=== PATIENT | female | born 2000 | race Caucasian/White ===

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

== ENCOUNTER 2021-01-02 03:57 | Emergency (ER) | payer SELFPAY ==
[2021-01-02] MEDS ORDERED: Ondansetron 4 MG Tab.DIS PO ONE (04:33)
--- NOTE | 2021-01-02 04:50 | EDM.PDOC ---
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 Her nausea, vomiting, and diarrhea started 1 to 2 days ago. Her last bowel movement was semiformed at 11 PM last night. 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 It was enough to fill half of a panty liner but has subsequently stopped. She became concerned about that in addition to her nausea, vomiting, and diarrhea. Her boss sent her home from work because of that. She does have a history of a prior that resulted in a medically induced and D&C. The patient is unsure of what her blood type is and cannot recall if she required RhoGam after the D&C. That prior was 2 years ago. She did start taking her vitamins. 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 She did talk to her neurologist to encouraged her to restart that yesterday. She has taken 1 dose thus far. She does seem quite anxious. Again she reports that the vaginal bleeding has subsided but the cramping continues. She denies any fever or chills. She has had a diminished appetite. She last had intercourse 2 weeks ago. The patient was started on amoxicillin for acute sinusitis on 12/30/2020 as well. lower abd Pain Score (Numeric/FACES): 6 - Related Data Allergies Allergy/AdvReac Type Severity Reaction Status Date / Time No Known Allergies Allergy Verified 01/02/21 04:13 Home Meds: Home Meds Albuterol Sulfate [Proair Hfa] 8.5 gm IH ASDIRECTED PRN 05/22/13 [History] Amoxicillin 500 mg PO BID 01/02/21 [History] Folic Acid 1 mg PO DAILY 01/02/21 [History] levETIRAcetam [Keppra] 500 mg PO DAILY 01/02/21 [History] Past Medical History HEENT History: Reports: Impaired Vision, Other (See Below) Other HEENT History: glasses Cardiovascular History: Reports: Heart Murmur, Syncope Respiratory History: Reports: Asthma Genitourinary History: Reports: STD REEL SLITTER History: Reports: Polycystic Ovaries, Therapeutic , Other (See Below) Musculoskeletal History: Reports: Fracture, Other (See Below) Other Musculoskeletal History: tib/fib fx left side. right elbow fx and ulnar fx Neurological History: Reports: Concussion, Migraines, Seizure Psychiatric History: Reports: Depression Dermatologic History: Reports: Other (See Below) Other Dermatologic History: rash - Past Surgical History HEENT Surgical History: Reports: Oral Surgery GI Surgical History: Reports: EGD Social & Family History - Caffeine Use Caffeine Use: Reports: Soda, Tea - Recreational Drug Use Recreational Drug Use: No - Living Situation & Occupation Living situation: Reports: Single, with Significant Other (Lives with significant other, No working at this time but attending training monthly) ED ROS GENERAL - Review of Systems Review Of Systems: See Below Constitutional: Reports: Decreased Appetite HEENT: Reports: Rhinitis, Sinus Problem Respiratory: Reports: No Symptoms Cardiovascular: Reports: No Symptoms Endocrine: Reports: No Symptoms GI/Abdominal: Reports: Abdominal Pain (Generalized), Diarrhea, Decreased Appetite, Nausea, Vomiting : Reports: Other (Vaginal bleeding that started at work tonight and has subsided now.) Musculoskeletal: Reports: No Symptoms Skin: Reports: No Symptoms Neurological: Reports: No Symptoms Psychiatric: Reports: No Symptoms Hematologic/Lymphatic: Reports: No Symptoms Immunologic: Reports: No Symptoms ED EXAM - Physical Exam Exam: See Below Exam Limited By: No Limitations General Appearance: Alert, No Apparent Distress, Anxious Eye Exam: Bilateral Eye: EOMI, PERRL Nose: Nasal Swelling, Nasal Drainage, Other (Tenderness to percussion over the maxillary sinuses) Throat/Mouth: Normal Inspection, Normal Lips, Normal Oropharynx, Normal Voice, No Airway Compromise Head: Atraumatic, Normocephalic Neck: Normal Inspection Respiratory/Chest: No Respiratory Distress, Lungs Clear, Normal Breath Sounds Cardiovascular: Normal Peripheral Pulses, Regular Rate, Rhythm, No Murmur GI/Abdominal Exam: Soft, Tender (Generalized abdominal tenderness to palpation), Abnormal Bowel Sounds (Hyperactive bowel sounds). No: Guarding, Rigid, Rebound Extremities: Normal Inspection Neurological: Alert, Oriented, Normal Cognition, No Motor/Sensory Deficits Psychiatric: Normal Affect Skin Exam: Warm, Dry Lymphatic: No Adenopathy Course - Vital Signs Last Recorded V/S: Last Vital Signs Temp 36.7 C 01/02/21 04:18 Pulse 115 H 01/02/21 04:18 Resp 15 01/02/21 04:18 BP 114/78 01/02/21 04:18 Pulse Ox 97 01/02/21 04:18 - Orders/Labs/Meds Orders: Active Orders 24 hr Category Date Time Status PATIENT RETYPE [BBK] Stat Lab 01/02/21 04:20 Results TYPE AND SCREEN [BBK] Stat Lab 01/02/21 04:20 Results Labs: Laboratory Tests 01/02/21 01/02/21 01/02/21 Range/Units 04:20 04:20 04:20 WBC 6.4 (4.5-11.0) K/uL RBC 4.32 (3.30-5.50) M/uL Hgb 12.9 D (12.0-15.0) g/dL Hct 38.0 (36.0-48.0) % MCV 88 (80-98) fL MCH 30 (27-31) pg MCHC 34 (32-36) % Plt Count 335 (150-400) K/uL Sodium (140-148) mmol/L Potassium (3.6-5.2) mmol/L Chloride (100-108) mmol/L Carbon Dioxide (21-32) mmol/L Anion Gap (5.0-14.0) mmol/L BUN (7-18) mg/dL Creatinine (0.6-1.0) mg/dL Est Cr Clr Drug Dosing Estimated GFR (MDRD) (>60) Glucose (74-106) mg/dL Calcium (8.5-10.1) mg/dL HCG, Quant 1114 H (0-6) mIU/mL Blood Type AB NEGATIVE Gel Antibody Screen Negative Rhogam Indicated 01/02/21 01/02/21 Range/Units 04:30 04:30 WBC (4.5-11.0) K/uL RBC (3.30-5.50) M/uL Hgb (12.0-15.0) g/dL Hct (36.0-48.0) % MCV (80-98) fL MCH (27-31) pg MCHC (32-36) % Plt Count (150-400) K/uL Sodium 139 L (140-148) mmol/L Potassium 3.8 (3.6-5.2) mmol/L Chloride 103 (100-108) mmol/L Carbon Dioxide 26 (21-32) mmol/L Anion Gap 13.8 (5.0-14.0) mmol/L BUN 12 (7-18) mg/dL Creatinine 0.7 (0.6-1.0) mg/dL Est Cr Clr Drug Dosing TNP Estimated GFR (MDRD) > 60 (>60) Glucose 97 (74-106) mg/dL Calcium 8.6 (8.5-10.1) mg/dL HCG, Quant (0-6) mIU/mL Blood Type AB NEGATIVE Gel Antibody Screen Rhogam Indicated Yes Meds: Medications Discontinued Medications Generic Name Dose Route Start Last Admin Trade Name Freq PRN Reason Stop Dose Admin Ondansetron HCl 4 mg 01/02/21 04:33 01/02/21 04:43 Ondansetron 4 Mg Tab.Dis PO 01/02/21 04:34 4 mg ONETIME ONE Administration - Re-Assessments/Exams Free Text/Narrative Re-Assessment/Exam: 01/02/21 05:31 the patient's labs showing a normal CBC and basic metabolic profile. The patient's quantitative is 1114 and her blood type is AB- indicating that the patient will need to receive RhoGam for bleeding. I confirmed this with the discussion with Mary Beth Day, certified alcohol drug counselor. We will have the patient follow-up with Elma Rojas in 2 days for a recheck of her beta-hCG quantitative. Departure - Departure Time of Disposition: 07:15 Disposition: Home, Self-Care 01 Clinical Impression: First trimester bleeding, Viral gastroenteritis - Discharge Information Instructions: Viral Gastroenteritis, Adult, [id number], Vaginal Bleeding During , First Trimester, [id number] Referrals: Elma Rojas CNM [Primary Care Provider] - Forms: ED Department Discharge Care Plan Goals: I would like you to follow-up with Elma Rojas in 2 days. I put through a referral for this appointment. Somebody should be contacting you today with the appointment. In addition I have provided you with a work note stating you can go back to work tomorrow. In addition, today you received your first dose of RhoGam as your blood type is AB- and you had vaginal bleeding. This is to prevent you developing antibodies for Rh+ blood which could cause hydrops fetalis which is lethal to the fetus not only in this but an suture pregnancies. Your beta-hCG quantitative was 1114 and based on that I think you are not far enough along to be able to see anything on ultrasound including heartbeat. We will continue to monitor this over the course of the next couple of weeks. As for the nausea, vomiting, and diarrhea. This is likely due to a viral gastroenteritis. I will have a prescription for you in the [facility] machine for Zofran to control your nausea. This is safe to take during . Sepsis Event Note (ED) - Evaluation Sepsis Screening Result: No Definite Risk - Focused Exam Vital Signs: Vital Signs Temp Pulse Resp BP Pulse Ox 01/02/21 04:18 36.7 C 115 H 15 114/78 97 01/02/21 04:16 36.7 C 115 H 15 114/78 97 - Problem List & Annotations (1) First trimester bleeding SNOMED Code(s): 9233773819532099 Code(s): O20.9 - HEMORRHAGE IN EARLY , UNSPECIFIED Status: Acute Priority: Medium Current Visit: Yes (2) Viral gastroenteritis SNOMED Code(s): 214110845 Code(s): A08.4 - VIRAL INTESTINAL INFECTION, UNSPECIFIED Status: Acute Priority: Medium Current Visit: Yes - Problem List Review Problem List Initiated/Reviewed/Updated: Yes - My Orders Last 24 Hours: My Active Orders 01/02/21 04:20 PATIENT RETYPE [BBK] Stat TYPE AND SCREEN [BBK] Stat - Assessment/Plan Last 24 Hours: My Active Orders 01/02/21 04:20 PATIENT RETYPE [BBK] Stat TYPE AND SCREEN [BBK] Stat
[2021-01-02 04:58] VITALS: BP 114/78; PULSE 115
== END 2021-01-02 07:11 | disposition home or self-care (01) ==
LOC: JP.ED 03:57
DX: O20.9 Hemorrhage in early pregnancy, unspecified (principal); O98.511 Other viral diseases complicating pregnancy, first trimester; A08.4 Viral intestinal infection, unspecified; O99.511 Diseases of the respiratory system complicating pregnancy, first trimester; J45.909 Unspecified asthma, uncomplicated; Z79.899 Other long term (current) drug therapy; Z3A.01 Less than 8 weeks gestation of pregnancy
CPT/HCPCS: 36415; 80048; 84702; 85027; 86850; 86900; 86901; 90384; 99284; A9270; 36430; J2790

== ENCOUNTER 2021-01-07 18:45 | Emergency (ER) | payer MEDICAID | END 2021-01-07 20:14 | disposition left against medical advice (07) | LOC: JP.ED 18:45 | DX: Z53.21 Procedure and treatment not carried out due to patient leaving prior to being seen by health care provider (principal) ==

== ENCOUNTER 2021-12-15 22:33 | Emergency (ER) | payer BC, MEDICAID ==
[2021-12-15 23:59] LABS: ESTIMATED GFR 108 mL/min (>60)
[2021-12-16] MEDS ORDERED: Nicotine 21 MG/24 Hr Patch TRDERM ONE (08:33)
[2021-12-16 08:38] VITALS: BP 115/76; PULSE 98
== END 2021-12-16 12:55 ==
LOC: JP.ED 22:33
DX: T50.902A Poisoning by unspecified drugs, medicaments and biological substances, intentional self-harm, initial encounter (principal); F32.A Depression, unspecified; Z79.899 Other long term (current) drug therapy; Z20.822 Contact with and (suspected) exposure to COVID-19
CPT/HCPCS: 36415; 80053; 80143; 80179; 80305; 80307; 81025; 85025; 87635; 93005; 99285; A9270; U0002

== ENCOUNTER 2022-06-18 09:49 | Emergency (ER) | payer MEDICAID ==
[2022-06-18] MEDS ORDERED: Ketorolac 30 MG/ML SDV IVPUSH ONE (10:37)
[2022-06-18] MEDS ORDERED: Ondansetron 4 MG/2 ML SDV IVPUSH ONE (10:38)
[2022-06-18 11:36] VITALS: BP 108/82; PULSE 76
[2022-06-18] MEDS ORDERED: Acetaminophen/HYDROcodone 325-5 MG Tab PO ONE (11:50)
== END 2022-06-18 13:27 | disposition home or self-care (01) ==
LOC: JP.ED 09:49
DX: R10.2 Pelvic and perineal pain (principal); Z86.16 Personal history of COVID-19
CPT/HCPCS: 36415; 76830; 76857; 81001; 81025; 85025; 86850; 86900; 86901; 96374; 96375; 99284; J1885; J2405; 99282

== ENCOUNTER 2022-10-01 13:05 | Emergency (ER) | payer MEDICAID ==
[2022-10-01] MEDS ORDERED: Metoclopramide 10 MG/2 ML SDV IVPUSH ONE (13:56)
[2022-10-01] MEDS ORDERED: Sodium Chloride 0.9% 10 ML Syringe FLUSH PRN (13:56)
[2022-10-01] MEDS ORDERED: Sodium Chloride 0.9% 1,000 ML IV ONE (14:00)
[2022-10-01 14:48] LABS: ESTIMATED GFR 126 mL/min (>60)
[2022-10-01] MEDS ORDERED: Potassium Chloride 20 MEQ Tab.ER PO ONE (15:07)
[2022-10-01 15:13] VITALS: BP 115/70; PULSE 104
== END 2022-10-01 16:01 | disposition home or self-care (01) ==
LOC: JP.ED 13:05
DX: O21.9 Vomiting of pregnancy, unspecified (principal); O98.511 Other viral diseases complicating pregnancy, first trimester; A08.4 Viral intestinal infection, unspecified; O99.281 Endocrine, nutritional and metabolic diseases complicating pregnancy, first trimester; E86.0 Dehydration; O99.511 Diseases of the respiratory system complicating pregnancy, first trimester; J45.909 Unspecified asthma, uncomplicated; Z3A.09 9 weeks gestation of pregnancy; Z86.16 Personal history of COVID-19
CPT/HCPCS: 36415; 80053; 81001; 85025; 96361; 96374; 99283; 99284; A9270; J2765; J3490; J7030

== ENCOUNTER 2022-11-23 23:18 | Emergency (ER) | payer MEDICAID ==
[2022-11-23 23:39] VITALS: BP 117/70; PULSE 111
[2022-11-24 00:18] LABS: BASOPHILS ABSOLUTE AUTO 0.03 K/uL (0.00-0.10); BASOPHILS PERCENT AUTO 0.3 % (0.1-1.3); EOSINOPHILS ABSOLUTE AUTO 0.03 K/uL (0.00-0.40); EOSINOPHILS PERCENT AUTO 0.3 % (0.0-5.4); HEMATOCRIT 31.4 % (34.3-46.0); HEMOGLOBIN 10.6 g/dL (11.2-15.5); IMMATURE GRAN PERCENT AUTO 0.2 % (0.0-0.7); LYMPHOCYTES ABSOLUTE AUTO 1.83 K/uL (0.8-3.3); LYMPHOCYTES PERCENT AUTO 19.8 % (11.4-47.7); MEAN CORPUSCULAR HEMOGLOBIN 27.5 pg (31.6-35.5); MEAN CORPUSCULAR HGB CONC 33.8 g/dL (31.6-35.5); MEAN CORPUSCULAR VOLUME 81.6 fL (81.4-99.0); MONOCYTES ABSOLUTE AUTO 0.61 K/uL (0.20-0.90); MONOCYTES PERCENT AUTO 6.6 % (3.3-12.6); NEUTROPHILS ABSOLUTE AUTO 6.71 K/uL (1.0-7.6); NEUTROPHILS PERCENT AUTO 72.8 % (40.0-78.1); PLATELET COUNT,PLT 380 K/uL (130-375); RED BLOOD CELL COUNT 3.85 M/uL (3.77-5.24); WHITE BLOOD CELL COUNT,WBC 9.2 K/uL (3.2-11.0)
[2022-11-24 00:26] LABS: IMMATURE GRAN ABSOLUTE AUTO 0.02 K/uL (0.00-0.23)
[2022-11-24 00:28] LABS: CALCIUM 8.2 mg/dL (8.5-10.1); CREATININE 0.5 mg/dL (0.6-1.0); EST CRCL DRUG DOSING (CG) 152.29 mL/min; POTASSIUM,K 3.2 mmol/L (3.6-5.2)
[2022-11-24 00:32] LABS: ANION GAP 15.2 mmol/L (5.0-14.0)
== END 2022-11-24 01:36 | disposition home or self-care (01) ==
LOC: JP.ED 23:18
DX: O99.282 Endocrine, nutritional and metabolic diseases complicating pregnancy, second trimester (principal); E86.0 Dehydration; E87.6 Hypokalemia; O99.891 Other specified diseases and conditions complicating pregnancy; R55 Syncope and collapse; Z3A.17 17 weeks gestation of pregnancy; Z86.16 Personal history of COVID-19
CPT/HCPCS: 36415; 76815; 80048; 85025; 99284

== ENCOUNTER 2024-07-03 17:56 | Emergency (ER) | payer MEDICAID, OTHER ==
[2024-07-03 18:54] VITALS: BP 112/86; PULSE 103
[2024-07-03] MEDS: Ketorolac 15 MG/ML SDV IM ONE (19:46)
== END 2024-07-03 19:50 | disposition home or self-care (01) ==
LOC: JP.ED 17:56
DX: G89.18 Other acute postprocedural pain (principal); R07.0 Pain in throat; J45.909 Unspecified asthma, uncomplicated; Z86.16 Personal history of COVID-19
CPT/HCPCS: 96372; 99282; J1885